=== PATIENT | female | born 1945 | race Caucasian/White ===

== ENCOUNTER 2018-08-11 11:28 | Emergency (ER) | payer MEDICARE ==
[~2018-08-11] VITALS: Ht 160 cm; Wt 113.6 kg
[~2018-08-11 11:28] MED LIST: AGGRENOX 25 MG-1 CER PO; COUMADIN6 MG PO; DIOVAN/HCT 12.51 TAB PO; DIOVAN80 MG PO; FOSAMAX 70MG TA70 MG PO; TOPROL XL 50MG50 MG PO; ULTRAM 50MG TAB50 MG PO; ULTRAM100 MG PO
[2018-08-11 11:32] VITALS: BP 166/95; TEMP 98.1
[2018-08-11] MEDS ORDERED: LOPRESSOR 550 MG/TAB PO (11:51)
[2018-08-11 12:06] LABS: BASO % 0.5 % (0.0-2.0); EOS # 0.2 (0.0-0.7); EOS % 3.2 % (0-4.0); GRAN # 4.4 (1.4-6.5); GRAN % 71.4 % (42.2-75.2); HEMOGLOBIN 10.1 g/dl (12.5-16.0); LYMPH % 16.5 % (20.0-51.0); MEAN CELL VOLUME 78 fl (80.0-100.0); MEAN CORPUSCULAR HEMOGLOBIN 24 pg (27.0-31.0); MEAN CORPUSCULAR HGB CONC 31 g/dl (33.0-37.0); MEAN PLATELET VOLUME 11.3 fl (7.4-10.4); MONO # 0.5 (0.1-0.6); MONO % 8.2 % (1.7-9.3); PLATELET COUNT 235 K/mm3 (130-400); RED BLOOD COUNT 4.23 M/mm3 (4.10-5.30); REDCELL DISTRIBUTION WIDTH-CV 17.8 % (11.5-14.5)
[2018-08-11 12:14] LABS: INR 1.1 (0.8-3.0); PROTHROMBIN TIME 12.6 SECONDS (9.7-12.8)
[2018-08-11 12:15] LABS: ALBUMIN 3.8 gm/dL (3.5-5.0); CALCIUM 8.5 mg/dL (8.4-10.2); CREATININE, serum 0.59 mg/dL (0.52-1.25); POTASSIUM 3.9 mmol/L (3.4-5.0); TOTAL PROTEIN 6.9 gm/dL (6.4-8.2)
[2018-08-11 12:22] LABS: D-DIMER < 200.00 ng/mLDDu (200-230)
[2018-08-11] MEDS ORDERED: ULTRAM 50MG TAB50 MG PO (13:17)
[2018-08-11 13:38] VITALS: PULSE 102
== END 2018-08-11 13:38 | disposition home or self-care (01) ==
LOC: COL.ER 11:28
PROVIDERS: Nurse Practitioner Primary Care
DX: M25.552 Pain in left hip (principal); M79.652 Pain in left thigh; M54.32 Sciatica, left side; I48.91 Unspecified atrial fibrillation; I10 Essential (primary) hypertension; Z86.73 Personal history of transient ischemic attack (TIA), and cerebral infarction without residual deficits; Z79.01 Long term (current) use of anticoagulants
CPT/HCPCS: J1885; J2270

== ENCOUNTER 2021-03-02 14:14 | Emergency (ER) | payer MEDICARE ==
[~2021-03-02] VITALS: Ht 160 cm; Wt 113.6 kg
[~2021-03-02 14:14] MED LIST changes: +LOPRESSOR 550 MG/TAB PO
[2021-03-02 15:25] LABS: INR 1.2 (0.8-3.0); PROTHROMBIN TIME 13.9 SECONDS (9.7-12.8)
[2021-03-02 16:11] VITALS: BP 124/75; PULSE 75; TEMP 97.5
== END 2021-03-02 16:05 | disposition home or self-care (01) ==
LOC: COL.ER 14:14
PROVIDERS: Nurse Practitioner Primary Care
DX: M12.552 Traumatic arthropathy, left hip (principal); M25.562 Pain in left knee; I48.91 Unspecified atrial fibrillation; Z86.73 Personal history of transient ischemic attack (TIA), and cerebral infarction without residual deficits; Z79.01 Long term (current) use of anticoagulants; W01.0XXA Fall on same level from slipping, tripping and stumbling without subsequent striking against object, initial encounter; Y92.096 Garden or yard of other non-institutional residence as the place of occurrence of the external cause

== ENCOUNTER 2024-05-22 18:30 | Emergency (ER) | payer MEDICARE ==
[~2024-05-22] VITALS: Ht 160 cm; Wt 112.3 kg
[2024-05-22 18:31] VITALS: TEMP 97.5
[2024-05-22 19:21] LABS: BASO % 0.5 % (0.0-2.0); EOS # 0.2 K/mm3 (0.0-0.7); EOS % 2.1 % (0.0-4.0); GRAN # 7.3 K/mm3 (1.4-6.5); GRAN % 84.7 % (42.2-75.2); HEMOGLOBIN 11.2 g/dl (12.5-16.0); LYMPH # 0.5 K/mm3 (1.2-3.4); MEAN CELL VOLUME 98 fl (80.0-100.0); MEAN CORPUSCULAR HEMOGLOBIN 32 pg (27-31); MEAN CORPUSCULAR HGB CONC 33 g/dl (33.0-37.0); MEAN PLATELET VOLUME 11.5 fl (7.4-10.4); MONO # 0.6 K/mm3 (0.1-0.6); MONO % 6.4 % (1.7-9.3); PLATELET COUNT 181 K/mm3 (130-400); RED BLOOD COUNT 3.54 M/mm3 (4.10-5.30); REDCELL DISTRIBUTION WIDTH-CV 15.5 % (11.5-14.5)
[2024-05-22 19:22] LABS: HEMATOCRIT 34.5 % (37.0-47.0)
[2024-05-22] MEDS ORDERED: NS 500 ML IV ONE (19:30)
[2024-05-22] MEDS ORDERED: dilTIAZem 25 MG/5 ML VIAL IV ONE ×2 (19:30→20:45)
[2024-05-22 19:37] LABS: ALBUMIN 3.4 g/dL (3.4-4.8); BILIRUBIN,TOTAL 1.5 mg/dL (0.2-1.2); CALCIUM 7.2 mg/dL (8.4-10.2); CREATININE, serum 0.64 mg/dL (0.57-1.11); POTASSIUM 4.1 mEq/L (3.5-4.5); TOTAL PROTEIN 6.9 g/dl (6.2-8.1)
[2024-05-22 20:09] LABS: INR 1.2 (0.8-3.0); PROTHROMBIN TIME 12.6 SECONDS (9.7-12.8)
[2024-05-22 20:12] LABS: PARTIAL THROMBOPLASTIN TIME 32.9 SECONDS (26.0-37.0)
[2024-05-22 21:08] LABS: COLLECTION METHOD CLEAN CATCH
[2024-05-22 21:24] LABS: URINE APPEARANCE CLEAR (CLEAR/HAZY); URINE BLOOD NEGATIVE (NEGATIVE); URINE COLOR Dark Yellow (YELLOW); URINE GLUCOSE NEGATIVE (NEGATIVE); URINE KETONE 2+ (NEGATIVE); URINE NITRATE NEGATIVE (NEGATIVE); URINE PROTEIN(semi-quant) 1+ (NEGATIVE)
[2024-05-22 22:31] VITALS: BP 138/68; PULSE 98
== END 2024-05-22 22:34 | disposition short-term general hospital (02) ==
LOC: COL.ER 18:30
PROVIDERS: Physician Assistant
DX: S72.002A Fracture of unspecified part of neck of left femur, initial encounter for closed fracture (principal); I48.91 Unspecified atrial fibrillation; X58.XXXA Exposure to other specified factors, initial encounter
CPT/HCPCS: J7040